=== PATIENT | female | born 1935 | race Caucasian/White ===

== ENCOUNTER 2017-02-21 15:09 | Emergency (ER) | payer SELFPAY ==
[~2017-02-21] VITALS: Ht 157.5 cm; Wt 58.0 kg
[2017-02-21] MEDS ORDERED: MULT-717 PO (16:04)
[2017-02-21] MEDS ORDERED: CRAN500C6 PO (16:04)
[2017-02-21] MEDS ORDERED: LEVO50TA5 PO (16:04)
[2017-02-21] MEDS ORDERED: SENN1TAB7 PO (16:04)
[2017-02-21] MEDS ORDERED: ASPI-650 PO (16:04)
[2017-02-21] MEDS ORDERED: CHOL20002 PO (16:04)
[2017-02-21 17:02] LABS: HEMOGLOBIN 12.6 g/dL (11.7-16.4)
[2017-02-21 17:16] LABS: BLOOD UREA NITROGEN 19 mg/dL (7-18)
[2017-02-21 19:33] VITALS: BP 136/75
== END 2017-02-21 19:37 | disposition home or self-care (01) ==
LOC: ED 19:35
DX: R06.00 Dyspnea, unspecified (principal)
CPT/HCPCS: 36415; 71020; 80048; 82040; 85025; 93005; 99285